=== PATIENT | male | born 1950 | race Caucasian/White ===

== ENCOUNTER 2018-10-05 10:38 | Emergency (ER) | payer MEDICARE, OTHER ==
[2018-10-05 11:22] VITALS: BP 151/84
--- NOTE | 2018-10-05 12:18 | UC ---
Skin Complaint HPI - HPI Summary HPI Summary: 3 DAYS OF DISTINCTLY ITCHY, RED, RAISED RASH RIGHT SIDE OF NECK EXTENDING ANTERIORLY TO BASE OF NECK. DENIES FEVER. NO NEW MEDICINES OR EXPOSURES. NOT PAINFUL. - History of Current Complaint Chief Complaint: UCRash Time Seen by Provider: 10/05/18 12:07 Stated Complaint: SKIN COMP Hx Obtained From: Patient Onset/Duration: Gradual Onset, Lasting Days, Still Present Timing: Constant Onset Severity: Moderate Current Severity: Moderate Pain Intensity: 0 Pain Scale Used: 0-10 Numeric Character: Pruritus, Redness, Raised Aggravating Factor(s): Touch Alleviating Factor(s): Cold Associated Signs & Symptoms: Positive: Rash. Negative: Nausea, Difficulty Breathing, Fever, Chills, Cough, Wheezing, Throat Tightening, Tenderness - Allergy/Home Medications Allergies/Adverse Reactions: Allergies Allergy/AdvReac Type Severity Reaction Status Date / Time No Known Allergies Allergy Verified 10/05/18 11:14 Home Medications: Home Medications Multivitamin [Multivitamins] 1 cap PO DAILY 10/05/18 [History Confirmed 10/05/18 ] PMH/Surg Hx/FS Hx/Imm Hx Cardiovascular History: Hypertension - Surgical History Surgical History: None - Family History Known Family History: Positive: None - Social History Alcohol Use: Daily Alcohol Amount: 2 glasses of wine Substance Use Type: None Smoking Status (MU): Never Smoked Tobacco Review of Systems All Other Systems Reviewed And Are Negative: Yes Constitutional: Positive: Negative Skin: Positive: Rash Respiratory: Positive: Negative Cardiovascular: Positive: Negative Gastrointestinal: Positive: Negative Physical Exam Triage Information Reviewed: Yes Appearance: Well-Appearing, No Pain Distress, Well-Nourished Vital Signs: Initial Vital Signs Temp 98.3 F 10/05/18 11:16 Pulse 59 10/05/18 11:16 Resp 14 10/05/18 11:16 BP 151/84 10/05/18 11:16 Pulse Ox 100 10/05/18 11:16 Vital Signs Reviewed: Yes Eyes: Positive: Conjunctiva Clear ENT: Positive: Hearing grossly normal Neck: Positive: Supple, Nontender, No Lymphadenopathy Respiratory: Positive: No respiratory distress, No accessory muscle use Cardiovascular: Positive: Pulses Normal Abdomen Description: Positive: Soft Musculoskeletal: Positive: No Edema Neurological: Positive: Alert Psychological: Positive: Age Appropriate Behavior Skin: Positive: Rashes - CONFLUENT, BEEFY ERYTHEMATOUS RASH RIGHT/ANTERIOR NECK EXTENDING JUST ACROSS MIDLINE. NO VESICLES, BLISTERS OR DRAINAGE. NOT TENDER. Course/Dx - Course Course Of Treatment: UNCLEAR ETIOLOGY OF RASH. APPEARS TO BE INFLAMMATORY DERMATITIS. WILL USE TOPICAL STEROID CREAM TO SEE IF SYMPTOMS IMPROVE. RASH IS NOT VESICULAR AND JUST CROSSES THE MIDLINE WHICH POINTS AWAY FROM SHINGLES. IF PATIENT DOES NOT RESPOND TO ANTIHISTAMINES AND STEROIDS WILL HAVE HIM FOLLOW-UP WITH HIS CAN WASHER IN [place]. - Diagnoses Provider Diagnosis: Dermatitis Discharge - Sign-Out/Discharge Documenting (check all that apply): Patient Departure All imaging exams completed and their final reports reviewed: No Studies - Discharge Plan Condition: Stable Disposition: HOME Prescriptions: Triamcinolone 0.1% CREAM(NF) [Kenalog Cream 0.1%(NF)] 1 applic TOPICAL TID PRN # 1 tube PRN Reason: Itching Patient Education Materials: Dermatitis (ED) Referrals: Hebert Nice MD [Primary Care Provider] - If Needed Additional Instructions: USE DAILY HYPOALLERGENIC MOISTURIZING LOTION AVOID HEAT AND HOT WATER TAKE OTC ANTIHISTAMINE DAILY (CLARITIN (LORATADINE), ZYRTEC (CETIRIZINE) OR IVONE (FEXOFENADINE) IN THE MORNING, 25-50MG BENADRYL AT NIGHT) DO NOT SCRATCH KEEP COOL, CLEAN AND DRY USE TOPICAL STEROID SPARINGLY 2-3 TIMES DAILY ON ITCHY SPOTS. KEEP AWAY FROM MUCOUS MEMBRANES. GO TO THE ED WITHOUT FAIL IF YOU DEVELOP ANY RESPIRATORY INVOLVEMENT, TONGUE/ LIP SWELLING, FEVER, NAUSEA/VOMITING OR ANY OTHER CONCERNING SYMPTOMS. IF YOU HAVE RECURRENT SYMPTOMS CONSIDER EVAL BY AN ORE SAMPLER. FOLLOW-UP WITH YOUR CAN WASHER IN [place] IF NEEDED. - Billing Disposition and Condition Condition: STABLE Disposition: Home
== END 2018-10-05 12:28 | disposition home or self-care (01) ==
LOC: UCCORT 10:38
DX: L30.9 Dermatitis, unspecified (principal); I10 Essential (primary) hypertension
CPT/HCPCS: 99212; G0463